=== PATIENT | female | born 1985 | race Two or more races ===

== ENCOUNTER 2020-05-01 00:48 | Emergency (ER) | payer SELFPAY ==
[~2020-05-01] VITALS: Ht 162.6 cm; Wt 77.1 kg
[~2020-05-01 00:48] MED LIST: NORPTMEDS CO
[2020-05-01 00:53] VITALS: BP 134/80
[2020-05-01] MEDS ORDERED: TETANUS-DIPTH-ACEL PERTUSSIS 0.5ML SYR Tdap IM ONE (02:45)
== END 2020-05-01 03:23 | disposition home or self-care (01) ==
LOC: ER 00:49
DX: S91.332A Puncture wound without foreign body, left foot, initial encounter (principal); E11.9 Type 2 diabetes mellitus without complications; F17.210 Nicotine dependence, cigarettes, uncomplicated; X58.XXXA Exposure to other specified factors, initial encounter; Y93.89 Activity, other specified; Y92.89 Other specified places as the place of occurrence of the external cause; Y99.8 Other external cause status
CPT/HCPCS: 73620; 90471; 90715

== ENCOUNTER 2021-01-12 14:11 | Emergency (ER) | payer SELFPAY ==
[~2021-01-12] VITALS: Ht 162.6 cm; Wt 74.8 kg
[2021-01-12 17:26] LABS: Urine Bacteria FEW /hpf (None Seen); Urine Blood Negative /uL (Negative); Urine Specific Gravity 1.032 (1.001-1.035); Urine WBC <1 /hpf (0 - 5)
[2021-01-12 17:49] VITALS: BP 131/86
== END 2021-01-12 18:45 | disposition home or self-care (01) ==
LOC: ER 14:11
DX: K29.70 Gastritis, unspecified, without bleeding (principal); K59.00 Constipation, unspecified; F17.210 Nicotine dependence, cigarettes, uncomplicated; E11.9 Type 2 diabetes mellitus without complications; Z20.822 Contact with and (suspected) exposure to COVID-19
CPT/HCPCS: 36415; 81001; 87426

== ENCOUNTER 2023-01-14 23:00 | Emergency (ER) | payer MEDICAID, OTHER ==
[~2023-01-14] VITALS: Ht 162.6 cm; Wt 79.0 kg
[2023-01-15] MEDS ORDERED: IBUPROFEN 800 MG TAB PO ONE (04:15)
[2023-01-15] MEDS ORDERED: HYDROcodone-ACET 5/325MG TAB PO ONE (04:15)
[2023-01-15] MEDS ORDERED: HYDR-4902 PO (04:52)
[2023-01-15] MEDS ORDERED: IBUP800T26 PO (04:52)
[2023-01-15 05:07] VITALS: BP 113/69
== END 2023-01-15 04:43 | disposition home or self-care (01) ==
LOC: EDBD 23:00 → ER 23:00
DX: R07.81 Pleurodynia (principal); F17.210 Nicotine dependence, cigarettes, uncomplicated; E11.9 Type 2 diabetes mellitus without complications; Z90.710 Acquired absence of both cervix and uterus; Z88.6 Allergy status to analgesic agent; Z98.890 Other specified postprocedural states
CPT/HCPCS: 71101